=== PATIENT | female | born 1990 | race Caucasian/White ===

== ENCOUNTER 2017-09-10 11:54 | Emergency (ER) | payer SELFPAY ==
[2017-09-10] MEDS: IBUPROFEN 600 MG TAB PO (12:51)
[2017-09-10] MEDS: ACETAMINOPHEN 500 MG TAB PO (12:52)
== END 2017-09-10 14:13 | disposition home or self-care (01) ==
LOC: FTE 11:54
DX: J10.1 Influenza due to other identified influenza virus with other respiratory manifestations (principal)
CPT/HCPCS: 71045; 87400; 99284-25